=== PATIENT | female | born 1965 | race African-American/Black ===

== ENCOUNTER 2022-12-06 05:11 | Inpatient (IN) | payer MEDICARE, MEDICAID ==
[~2022-12-06] VITALS: Ht 165.1 cm; Wt 55.1 kg
[2022-12-06] VITALS (8 sets, daily range): BP systolic 135–161; BP diastolic 95–115
[~2022-12-06 05:11] MED LIST: TOPUD
[2022-12-06] MEDS ORDERED: IPRATROPIUM/ALBUTEROL 0.5-3(2.5)MG/3ML NEB HHN STA (05:35)
[2022-12-06] MEDS ORDERED: PREDNISONE 20MG TABLET PO ONE (06:00)
[2022-12-06] MEDS ORDERED: P20 PO (07:23)
[2022-12-06] MEDS ORDERED: ALBU6.7H3 INH (07:23)
[2022-12-06] MEDS ORDERED: IPRATROPIUM/ALBUTEROL 0.5-3(2.5)MG/3ML NEB HHN ONE (08:15)
[2022-12-06] MEDS ORDERED: MAGNESIUM 1 G PREMIX 100 ML IV NR (10:00)
[2022-12-06] MEDS ORDERED: IPRATROPIUM/ALBUTEROL 0.5-3(2.5)MG/3ML NEB HHN NR (10:45)
[2022-12-06 12:43] LABS: HEMATOCRIT. 45.8 % (36.0-48.0); HEMOGLOBIN. 15.2 g/dL (12.0-16.0); MEAN CORPUSCULAR HEMOGLOBIN 30.8 pg (28.0-32.0); MEAN CORPUSCULAR VOLUME 92.6 fL (81.0-99.0); MEAN PLATELET VOLUME 10.5 fl (7.4-10.4); PLATELET 187 x1000/uL (130-400); RED BLOOD CELL COUNT 4.94 mill/uL (4.2-5.4); RED CELL DISTRIBUTION WIDTH 15.7 % (11.6-14.6)
[2022-12-06 13:08] LABS: CHLORIDE 105 mEq/L (98-107)
[2022-12-06 13:37] LABS: PLATELET ESTIMATE NORMAL
[2022-12-06] MEDS ORDERED: ONDANSETRON HCL 4MG/2ML INJ IV PRN (14:00)
[2022-12-06] MEDS ORDERED: ACETAMINOPHEN 325MG TABLET PO PRN (14:00)
[2022-12-06] MEDS ORDERED: AMLODIPINE 10MG TABLET PO SCH (15:00)
[2022-12-06] MEDS ORDERED: HYDRALAZINE HCL 50MG TABLET PO SCH (15:05)
[2022-12-06] MEDS ORDERED: IPRATROPIUM/ALBUTEROL 0.5-3(2.5)MG/3ML NEB HHN SCH (16:00)
[2022-12-06] MEDS: IPRATROPIUM BROMIDE (0.02%) 0.5MG/2.5ML NEB HHN SCH ×2 (16:03→20:53)
[2022-12-06 16:42] LABS: *AMPHETAMINES SCREEN URINE NEGATIVE (NEGATIVE); *BARBITURATES SCREEN URINE NEGATIVE (NEGATIVE); *BENZODIAZEPINES SCREEN URINE NEGATIVE (NEGATIVE); *COCAINE SCREEN URINE NEGATIVE (NEGATIVE); CANNABINOID URINE SCREEN PRESUMTIVE POSITIVE (NEGATIVE); METHADONE URINE SCREEN NEGATIVE (NEGATIVE); OPIATES URINE SCREEN NEGATIVE (NEGATIVE); PHENCYCLIDINE URINE SCREEN NEGATIVE (NEGATIVE)
[2022-12-06] MEDS: METHYLPREDNISOLONE SOD SUCC 40 MG/ML VIAL IV SCH ×2 (18:00→21:16)
[2022-12-06] MEDS: DILTIAZEM HCL 30MG TABLET PO SCH ×2 (18:00→21:15)
[2022-12-06] MEDS ORDERED: DILTIAZEM HCL 5MG/ML 5ML VIAL IV NR (18:00)
[2022-12-06] MEDS: HYDRALAZINE HCL 50MG TABLET PO SCH (19:20)
[2022-12-06] MEDS ORDERED: PROP20TA19 PO (20:35)
[2022-12-06] MEDS ORDERED: LORA10TA7 PO (20:35)
[2022-12-06] MEDS: FAMOTIDINE 20MG TABLET PO SCH (21:15)
[2022-12-07] VITALS: BP 146/102
[2022-12-07] MEDS: IPRATROPIUM BROMIDE (0.02%) 0.5MG/2.5ML NEB HHN SCH ×6 (00:57→20:20)
[2022-12-07 04:00] VITALS: BP 131/103
[2022-12-07] MEDS: DILTIAZEM HCL 30MG TABLET PO SCH ×4 (06:37→23:55)
[2022-12-07] MEDS: METHYLPREDNISOLONE SOD SUCC 40 MG/ML VIAL IV SCH ×2 (06:37→13:02)
[2022-12-07 08:00] VITALS: BP 121/89
[2022-12-07] MEDS: HYDRALAZINE HCL 50MG TABLET PO SCH ×2 (08:33→16:14)
[2022-12-07] MEDS: FAMOTIDINE 20MG TABLET PO SCH ×2 (08:38→21:08)
[2022-12-07 12:00] VITALS: BP 98/68
[2022-12-07 15:58] VITALS: BP 114/78
[2022-12-07 17:35] LABS: CLARITY URINE CLEAR (CLEAR); COLOR URINE YELLOW (YELLOW); KETONES URINE NEGATIVE (NEGATIVE); LEUKOCYTE ESTERASE URINE 3+ (NEGATIVE); NITRITE URINE NEGATIVE (NEGATIVE); OCCULT BLOOD URINE NEGATIVE (NEGATIVE); PH URINE 5.5 (4.5-8.0); PROTEIN URINE NEGATIVE (NEGATIVE); SPECIFIC GRAVITY URINE 1.011 (1.005-1.030); UROBILINOGEN URINE 0.2 E.U./dL (0.2-1.0)
[2022-12-07 20:00] VITALS: BP 124/82
[2022-12-07 21:08] LABS: T4 FREE 1.49 ng/dL (0.76-1.46)
[2022-12-08] VITALS: BP 130/86
[2022-12-08] MEDS: IPRATROPIUM BROMIDE (0.02%) 0.5MG/2.5ML NEB HHN SCH ×4 (01:10→11:25)
[2022-12-08 04:00] VITALS: BP 128/82
[2022-12-08] MEDS: DILTIAZEM HCL 30MG TABLET PO SCH ×2 (06:24→11:54)
[2022-12-08] MEDS ORDERED: CEFTRIAXONE 1 G PREMIX 50 ML IV SCH (07:45)
[2022-12-08 08:00] VITALS: BP 120/88
[2022-12-08] MEDS ORDERED: PROP20TA19 PO (08:41)
[2022-12-08] MEDS ORDERED: METH-371 MT (08:41)
[2022-12-08] MEDS ORDERED: IPRA3AMP9 NEB (08:41)
[2022-12-08] MEDS ORDERED: FLUT1DIS3 INH (08:41)
[2022-12-08] MEDS ORDERED: HYDR-4135 PO (08:41)
[2022-12-08] MEDS ORDERED: LEVO-65 MT (08:42)
[2022-12-08] MEDS ORDERED: METHYLPREDNISOLONE SOD SUCC 40 MG/ML VIAL IV SCH (09:00)
[2022-12-08] MEDS: HYDRALAZINE HCL 50MG TABLET PO SCH (09:41)
[2022-12-08] MEDS: FAMOTIDINE 20MG TABLET PO SCH (09:41)
[2022-12-08] MEDS ORDERED: CEFTRIAXONE 1,000 MG in DEXTROSE 5% WATER 50 ML IV SCH (11:00)
[2022-12-08] MEDS: METHIMAZOLE 5MG TABLET PO SCH ×2 (11:53→12:19)
[2022-12-08 12:00] VITALS: BP 127/88
[2022-12-08 12:56] VITALS: BP 127/88
[2022-12-08] MEDS ORDERED: PROPRANOLOL HCL 10MG TABLET PO NR (13:00)
[2022-12-08 16:27] VITALS: BP 122/89
== END 2022-12-08 18:36 | disposition home or self-care (01) | DRG 189 ==
LOC: ER 05:11 → 7WST 10:46 → EDBEDREQ 10:48 → EDBEDREQTM 10:48 → ENRESERV 11:12
PROVIDERS: ADMIT Internal Medicine; ATTEND Internal Medicine
DX: J96.01 Acute respiratory failure with hypoxia (principal); J44.1 Chronic obstructive pulmonary disease with (acute) exacerbation; F12.90 Cannabis use, unspecified, uncomplicated; E05.90 Thyrotoxicosis, unspecified without thyrotoxic crisis or storm; Z20.822 Contact with and (suspected) exposure to COVID-19; M54.30 Sciatica, unspecified side; T38.0X5A Adverse effect of glucocorticoids and synthetic analogues, initial encounter; Z87.891 Personal history of nicotine dependence; Z88.8 Allergy status to other drugs, medicaments and biological substances; Z79.899 Other long term (current) drug therapy; Y92.89 Other specified places as the place of occurrence of the external cause
CPT/HCPCS: 36415; 71045; 80048; 80305; 81003; 84439; 84443; 84481; 85025; 85379; 87426; 93306; 94640; 99291; C1893; C9803; J0696; J2920; J3475; J3490; J7060; J7512

== ENCOUNTER 2024-08-24 23:43 | Inpatient (IN) | payer MEDICARE, MEDICAID ==
[~2024-08-24] VITALS: Ht 167.6 cm; Wt 61.2 kg
[~2024-08-24 23:43] MED LIST changes: +ALBU6.7H3 INH; +FLUT1DIS3 INH; +HYDR50TA39 PO; +IPRA3AMP9 NEB; +LEVO-65 MT; +LORA10TA7 PO; +METH-371 MT; +P20 PO; +PROP20TA19 PO
[2024-08-24] MEDS: ALBUTEROL (0.083%) 2.5MG/3ML NEB HHN SCH (23:55)
[2024-08-24 23:56] VITALS: PULSE 123; RESP 24; O2SAT 94
[2024-08-24] MEDS: IPRATROPIUM BROMIDE (0.02%) 0.5MG/2.5ML NEB HHN STA (23:56)
[2024-08-25] VITALS (7 sets, daily range): BP systolic 122–138; BP diastolic 79–87; PULSE 100–119; RESP 16–22; TEMP 36.33624–36.6696; O2SAT 94–97
[2024-08-25] MEDS: METHYLPREDNISOLONE SOD SUCC 125MG/2ML (ACT-O-VIAL) IV STA
[2024-08-25] MEDS: MAGNESIUM 2 G PREMIX 50 ML IV ONE
[2024-08-25 00:17] LABS: BASOPHILS % 0.7 % (0.0-2.0); HEMATOCRIT. 40.8 % (36.0-48.0); HEMOGLOBIN. 13.5 g/dL (12.0-16.0); LYMPHOCYTES % 32.9 % (20.0-50.0); MEAN CORPUSCULAR HEMOGLOBIN 31.3 pg (28.0-32.0); MEAN CORPUSCULAR HGB CONC 33.2 g/dL (31.0-37.0); MEAN CORPUSCULAR VOLUME 94.3 fL (81.0-99.0); MEAN PLATELET VOLUME 9.7 fl (7.4-10.4); MONOCYTES % 6.7 % (2.0-8.0); NEUTROPHILS % 54.7 % (40.0-76.0); PLATELET 254 x1000/uL (130-400); RED BLOOD CELL COUNT 4.32 mill/uL (4.2-5.4); RED CELL DISTRIBUTION WIDTH 15.7 % (11.6-14.6); WHITE BLOOD COUNT 7.4 x1000/uL (4.5-11.0)
[2024-08-25 00:18] LABS: CHLORIDE 107 mEq/L (98-107); POTASSIUM 3.3 mEq/L (3.5-5.1); SODIUM 142 mEq/L (136-145)
[2024-08-25 00:19] LABS: CALCIUM 9.8 mg/dL (8.7-10.4); CARBON DIOXIDE 27 mEq/L (21-32)
[2024-08-25 00:24] LABS: CREATININE 1.2 mg/dL (0.6-1.0); GLUCOSE 98 mg/dL (70-105); UREA NITROGEN BLOOD 14 mg/dL (9-23)
[2024-08-25 00:38] LABS: BG BASE EXCESS -3.7 mmol/L (-2.0-3.0); BG CARBOXYHEMOGLOBIN 0.4 % (0.5-1.5); BG DEOXYHEMOGLOBIN 1.9 % (0.0-5.0); BG HCO3 ACT 21.9 mmol/L (21.0-28.0); BG OXYGEN SATURATION 98.1 % (94.0-98.0); BG OXYHEMOGLOBIN 97.7 % (94.0-98.0); BG PH 7.336 (7.350-7.450); BG PO2 115.3 mmHg (83.0-108.0); BG SAMPLE SITE RIGHT RADIAL; BG VENT MODE HHN
[2024-08-25 01:05] LABS: TROPONIN I HIGH SENSITIVITY < 4 ng/L (3.0-34)
[2024-08-25] MEDS ORDERED: IPRATROPIUM/ALBUTEROL 0.5-3(2.5)MG/3ML NEB HHN PRN (02:00)
[2024-08-25] MEDS: MULTIVITAMINS,THER W-MINERALS TABLET PO SCH (02:15)
[2024-08-25] MEDS ORDERED: DOCUSATE SODIUM 100MG CAPSULE PO PRN (02:15)
[2024-08-25] MEDS ORDERED: ONDANSETRON HCL 4MG/2ML INJ IV PRN (02:15)
[2024-08-25] MEDS ORDERED: CLONIDINE 0.1MG TABLET PO PRN (02:15)
[2024-08-25] MEDS ORDERED: MAGNESIUM/ALUMINUM HYDROXIDE/SIMETHICONE 30ML UDC PO PRN (02:15)
[2024-08-25] MEDS ORDERED: GUAIFENESIN 200MG/10ML SUGAR FREE UDC PO PRN (02:15)
[2024-08-25] MEDS ORDERED: ACETAMINOPHEN 325MG TABLET PO PRN ×2 (02:15)
[2024-08-25] MEDS: METHYLPREDNISOLONE SOD SUCC 40MG/ML (ACT-O-VIAL) IV SCH ×2 (02:25→21:33)
[2024-08-25] MEDS: KCL 20MEQ/100ML PREMIX 100 ML IV NR (02:28)
[2024-08-25] MEDS: AZITHROMYCIN 500MG/250ML 250 ML IV SCH (06:23)
[2024-08-25] MEDS: LACTATED RINGERS 1,000 ML IV ONE (06:24)
[2024-08-25 09:22] LABS: CLARITY URINE CLEAR (CLEAR); COLOR URINE YELLOW (YELLOW); GLUCOSE URINE NEGATIVE (NEGATIVE); KETONES URINE NEGATIVE (NEGATIVE); LEUKOCYTE ESTERASE URINE NEGATIVE (NEGATIVE); NITRITE URINE NEGATIVE (NEGATIVE); OCCULT BLOOD URINE NEGATIVE (NEGATIVE); PH URINE 5.5 (4.5-8.0); PROTEIN URINE NEGATIVE (NEGATIVE); SPECIFIC GRAVITY URINE 1.013 (1.005-1.030); UROBILINOGEN URINE 0.2 E.U./dL (0.2-1.0)
[2024-08-25 09:48] LABS: *AMPHETAMINES SCREEN URINE NEGATIVE (NEGATIVE)
[2024-08-25 09:49] LABS: *BARBITURATES SCREEN URINE NEGATIVE (NEGATIVE); *BENZODIAZEPINES SCREEN URINE NEGATIVE (NEGATIVE); *COCAINE SCREEN URINE NEGATIVE (NEGATIVE)
[2024-08-25 09:50] LABS: CANNABINOID URINE SCREEN PRESUMPTIVE POSITIVE (NEGATIVE); ECSTASY MDMA SCREEN URINE NEGATIVE (NEGATIVE); METHADONE URINE SCREEN NEGATIVE (NEGATIVE); OPIATES URINE SCREEN NEGATIVE (NEGATIVE); PHENCYCLIDINE URINE SCREEN NEGATIVE (NEGATIVE)
[2024-08-25] MEDS: BUDESONIDE 0.5MG/2ML NEB HHN SCH (10:08)
[2024-08-25] MEDS: IPRATROPIUM/ALBUTEROL 0.5-3(2.5)MG/3ML NEB HHN SCH (10:09)
[2024-08-25 10:10] LABS: CREATINE KINASE 160 IU/L (34-145); PHOSPHORUS 2.3 mg/dL (2.5-4.9)
[2024-08-25 10:17] LABS: TROPONIN I HIGH SENSITIVITY 113 ng/L (3.0-34)
[2024-08-25] MEDS: ENOXAPARIN 40MG/0.4ML SYR SUBCUT SCH (10:36)
[2024-08-25] MEDS: AMLODIPINE 5MG TABLET PO SCH (10:36)
[2024-08-25] MEDS: METHIMAZOLE 5MG TABLET PO SCH (10:37)
[2024-08-25] MEDS ORDERED: CHLO25TA2 PO (16:29)
[2024-08-25] MEDS ORDERED: ALBU2.5V13 NEB (16:29)
[2024-08-25] MEDS ORDERED: METH-372 PO (16:29)
[2024-08-25] MEDS ORDERED: METO25TA6 PO (16:29)
[2024-08-25] MEDS ORDERED: ALBU18HF2 PO (16:29)
[2024-08-25] MEDS ORDERED: MELO-104 PO (16:29)
[2024-08-25] MEDS ORDERED: LOSA100T33 PO (16:29)
[2024-08-25] MEDS ORDERED: FLUT1BLS9 IH (16:29)
[2024-08-25] MEDS: POTASSIUM PHOSPHATE 15 MMOL in DEXT 5% WATER 245 ML IV ONE (17:18)
[2024-08-25 18:52] LABS: CREATINE KINASE MB FRACTION 2.7 ng/mL (0.5-3.6)
[2024-08-25 21:09] LABS: CREATINE KINASE 143 IU/L (34-145)
[2024-08-25 21:10] LABS: TROPONIN I HIGH SENSITIVITY 88 ng/L (3.0-34)
[2024-08-25] MEDS: FAMOTIDINE 20MG TABLET PO SCH (21:33)
[2024-08-25] MEDS: GUAIFENESIN 600MG ER TABLET PO SCH (21:33)
[2024-08-26] VITALS (8 sets, daily range): BP systolic 105–137; BP diastolic 68–93; PULSE 77–93; RESP 16–20; TEMP 36.22512–36.50292; O2SAT 93–100
[2024-08-26] MEDS: AZITHROMYCIN 500MG/250ML 250 ML IV SCH (01:06)
[2024-08-26 01:35] LABS: ALANINE AMINOTRANSFERASE 13 IU/L (10-49); ALBUMIN 4.1 g/dL (3.2-4.8); ASPARTATE AMINOTRANSFERASE 16 IU/L (<34); CREATINE KINASE 129 IU/L (34-145)
[2024-08-26 01:36] LABS: BILIRUBIN DIRECT 0.2 mg/dL (<=3.0); BILIRUBIN TOTAL 0.7 mg/dL (0.1-1.0); PROTEIN TOTAL 6.9 g/dL (6.0-8.3)
[2024-08-26 01:54] LABS: TROPONIN I HIGH SENSITIVITY 69 ng/L (3.0-34)
[2024-08-26 07:01] LABS: HEMATOCRIT. 38.4 % (36.0-48.0); MEAN CORPUSCULAR HEMOGLOBIN 31.4 pg (28.0-32.0); MEAN CORPUSCULAR HGB CONC 33.9 g/dL (31.0-37.0); MEAN CORPUSCULAR VOLUME 92.7 fL (81.0-99.0); PLATELET 242 x1000/uL (130-400); RED BLOOD CELL COUNT 4.14 mill/uL (4.2-5.4); WHITE BLOOD COUNT 15.6 x1000/uL (4.5-11.0)
[2024-08-26 07:23] LABS: DIFFERENTIAL COMMENT 1
[2024-08-26 07:27] LABS: CALCIUM 9.7 mg/dL (8.7-10.4); CARBON DIOXIDE 24 mEq/L (21-32); CHLORIDE 110 mEq/L (98-107); POTASSIUM 4.3 mEq/L (3.5-5.1); SODIUM 141 mEq/L (136-145)
[2024-08-26 07:32] LABS: CREATININE 1.1 mg/dL (0.6-1.0); GLUCOSE 118 mg/dL (70-105); TRIGLYCERIDE 49 mg/dL (0-150)
[2024-08-26 07:33] LABS: LDL CHOLESTEROL 78 mg/dL (5-100); UREA NITROGEN BLOOD 16 mg/dL (9-23)
[2024-08-26 07:34] LABS: CHOLESTEROL 212 mg/dL (<200); CREATINE KINASE 110 IU/L (34-145); HDL CHOLESTEROL 115 mg/dL (>65)
[2024-08-26 07:37] LABS: THYROID STIMULATING HORMONE 0.81 uIU/mL (0.55-4.78)
[2024-08-26 07:57] LABS: TROPONIN I HIGH SENSITIVITY 43 ng/L (3.0-34)
[2024-08-26 08:12] LABS: BG BASE EXCESS -0.6 mmol/L (-2.0-3.0); BG CARBOXYHEMOGLOBIN 0.6 % (0.5-1.5); BG DEOXYHEMOGLOBIN 6.2 % (0.0-5.0); BG FRACTION INSPIRED OXYGEN 21; BG HCO3 ACT 22.9 mmol/L (21.0-28.0); BG METHEMOGLOBIN 0.3 % (0.5-1.5); BG OXYGEN SATURATION 93.7 % (94.0-98.0); BG OXYHEMOGLOBIN 92.9 % (94.0-98.0); BG PCO2 34.3 mmHg (32.0-45.0); BG PH 7.442 (7.350-7.450); BG PO2 66.2 mmHg (83.0-108.0); BG SAMPLE SITE RIGHT RADIAL; BG TOTAL HEMOGLOBIN 13.8 g/dL (12.0-16.0); BG VENT MODE ROOM AIR
[2024-08-26] MEDS: BUDESONIDE 0.5MG/2ML NEB HHN SCH (09:11)
[2024-08-26] MEDS ORDERED: LORA10TA7 PO (14:38)
[2024-08-26 17:53] LABS: PLATELET ESTIMATE NORMAL
== END 2024-08-26 17:00 | disposition home or self-care (01) | DRG 189 ==
LOC: ER 23:43 → EDBEDREQTM 08-25 01:42 → EDBEDREQ 08-25 01:42 → 6WST 08-25 03:46 → 5WST 08-25 03:59 → 8WST 08-25 14:31
PROVIDERS: ADMIT Internal Medicine; ATTEND Internal Medicine
DX: J96.01 Acute respiratory failure with hypoxia (principal); I21.A1 Myocardial infarction type 2; J44.1 Chronic obstructive pulmonary disease with (acute) exacerbation; J45.902 Unspecified asthma with status asthmaticus; E87.20 Acidosis, unspecified; N17.9 Acute kidney failure, unspecified; I50.30 Unspecified diastolic (congestive) heart failure; I13.0 Hypertensive heart and chronic kidney disease with heart failure and stage 1 through stage 4 chronic kidney disease, or unspecified chronic kidney disease; Z20.822 Contact with and (suspected) exposure to COVID-19; J96.02 Acute respiratory failure with hypercapnia; F12.10 Cannabis abuse, uncomplicated; E87.6 Hypokalemia; F17.200 Nicotine dependence, unspecified, uncomplicated; E05.90 Thyrotoxicosis, unspecified without thyrotoxic crisis or storm; D53.9 Nutritional anemia, unspecified; E83.39 Other disorders of phosphorus metabolism; N18.9 Chronic kidney disease, unspecified; J20.9 Acute bronchitis, unspecified; J43.9 Emphysema, unspecified; I25.2 Old myocardial infarction; Z90.710 Acquired absence of both cervix and uterus
CPT/HCPCS: 36415; 36600; 71045; 80048; 80061; 80076; 80305; 81003; 82375; 82550; 82553; 82805; 83605; 83735; 83880; 84100; 84145; 84439; 84443; 84484; 85025; 85379; 87426; 87804; 93005; 94640; 97161; 97165; 99291; J0456; J1650; J2919; J2920; J3475; J3480; J3490; J7060; J7626